=== PATIENT | male | born 1960 | race Caucasian/White ===

== ENCOUNTER 2018-09-20 14:44 | Emergency (ER) | payer BC, MEDICAID ==
[2018-09-20 15:25] VITALS: BP 154/89
[2018-09-20] MEDS ORDERED: Tetan/Diph/Pertus SYR(Tdap)* 0.5 ML SYR(BOOSTRIX) use SYR IM ONE (16:28)
--- NOTE | 2018-09-20 16:35 | ED ---
Throat Pain/Nasal Congestion - HPI Summary HPI Summary: 58 yr old male with complaint of redness and honey colored crusty drainage from skin right side of face. Patient sustained a brush burn from carpet that he fell on over this past weekend. He landed on right side of his face on floor, and sustained abrasion. Denies LOC. No pain in the bones or in eye. No fever or chills. He noted increasing redness around the abrasion and some honey colored drainage that has gotten crusty from the area. 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 Alcohol Use: Daily Alcohol Amount: 6 pack/day Substance Use Type: Reports: None Smoking Status (MU): Never Smoked Tobacco Review of Systems Constitutional: Negative Skin: Other - abrasion skin face with redness and drainage All Other Systems Reviewed And Are Negative: Yes Physical Exam Triage Information Reviewed: Yes Vital Signs On Initial Exam: Initial Vitals Temp Pulse Resp BP Pulse Ox 98.2 F 84 16 154/89 100 09/20/18 15:20 09/20/18 15:20 09/20/18 15:20 09/20/18 15:20 09/20/18 15:20 Vital Signs Reviewed: Yes Appearance: Positive: Well-Appearing, No Pain Distress Skin: Positive: Other - right side of face over lateral forehead, zygomatic and lateral maxilla area with abrasion and cellulitis with some honey colored oozing. No significant STS. Head/Face: Positive: Normal Head/Face Inspection Eyes: Positive: EOMI, MARYLOU ENT: Positive: Pharynx normal, TMs normal, Other - No tenderness over the orbital bones or zygoma, or maxillary sinus area bones. Neck: Positive: Supple, Nontender Respiratory/Lung Sounds: Positive: Clear to Auscultation, Breath Sounds Present Cardiovascular: Positive: RRR. Negative: Murmur Abdomen Description: Negative: Distended Musculoskeletal: Positive: Strength/ROM Intact Neurological: Positive: Sensory/Motor Intact, Alert, Oriented to Person Place, Time, CN Intact II-III Psychiatric: Positive: Normal Diagnostics - Vital Signs Vital Signs Temp Pulse Resp BP Pulse Ox 09/20/18 15:20 98.2 F 84 16 154/89 100 - Laboratory Lab Statement: Any lab studies that have been ordered have been reviewed, and results considered in the medical decision making process. EENT Course/Dx - Course Course Of Treatment: 58 yr old with cellulitis/impegitgo after abrasion to face. DC home on keflex 10 day course. - Diagnoses Provider Diagnoses: Abrasion, face with infection, Hypertension Discharge - Sign-Out/Discharge Documenting (check all that apply): Patient Departure All imaging exams completed and their final reports reviewed: No Studies - Discharge Plan Condition: Good Disposition: HOME Prescriptions: Cephalexin CAP* [Keflex CAP*] 500 mg PO QID #40 cap Patient Education Materials: Cellulitis (ED), Hypertension (ED) Referrals: No Primary Care Phys,NOPCP [Primary Care Provider] - [facility] [place]] - 2 Days - Billing Disposition and Condition Condition: GOOD Disposition: Home
== END 2018-09-20 16:43 | disposition home or self-care (01) ==
LOC: UCCORT 14:44
DX: S00.81XA Abrasion of other part of head, initial encounter (principal); L08.9 Local infection of the skin and subcutaneous tissue, unspecified; I10 Essential (primary) hypertension; Z23 Encounter for immunization; W18.39XA Other fall on same level, initial encounter; Y92.9 Unspecified place or not applicable
CPT/HCPCS: 90471; 90715; 99202; G0463

== ENCOUNTER 2019-07-11 09:44 | Emergency (ER) | payer BC, MEDICAID, OTHER ==
[2019-07-11 10:05] VITALS: BP 141/85
--- NOTE | 2019-07-11 10:36 | UC ---
Eye Complaint HPI - HPI Summary HPI Summary: Pt presents with c/o left eye redness, clear discharge, and swelling around eye or upper and lower lid taht began on 07/06/19 while hunting and had a branch "scrape across his eye". Pt states that he had the same thing happen last year and is requesting keflex and refusing eye drops. - History of Current Complaint Chief Complaint: UCEye Stated Complaint: LEFT EYE IRRITATION Time Seen by Provider: 07/11/19 10:26 Hx Obtained From: Patient Onset/Duration: Gradual Onset, Lasting Days, Still Present, Worse Since - onset Timing: Constant Severity Initially: Mild Severity Currently: Moderate Pain Intensity: 4 Character: Sharp Alleviating Factor(s): Darkness - is photophobic Associated Signs And Symptoms: Positive: Drainage (Clear), Swelling Related History: Diagnosed As: - periorbital cellulitis - Risk Factors Penetrating Injury Risk Factor: Negative Globe Rupture Risk Factors: Negative Acute Glaucoma Risk Factors: Negative Optic Artery Occlusion Risk Factors: Negative - Allergies/Home Medications Allergies/Adverse Reactions: Allergies Allergy/AdvReac Type Severity Reaction Status Date / Time No Known Allergies Allergy Verified 07/11/19 10:02 Home Medications: Home Medications Cephalexin CAP* [Keflex 500 CAP*] 500 mg PO ONCE 07/11/19 [History Confirmed ] PMH/Surg Hx/FS Hx/Imm Hx Previously Healthy: Yes - Surgical History Surgical History: Yes Surgery Procedure, Year, and Place: C5-C6 NECK SX - Family History Known Family History: Positive: Cardiac Disease - Social History Occupation: Employed Full-time Lives: With Family Alcohol Use: Daily Alcohol Amount: 6 pack/day Substance Use Type: None Smoking Status (MU): Never Smoked Tobacco Have You Smoked in the Last Year: No Review of Systems All Other Systems Reviewed And Are Negative: Yes Constitutional: Positive: Negative Skin: Positive: Other - swelling and erythema left eyelids and surrounding skin Eyes: Positive: Negative ENT: Positive: Negative Respiratory: Positive: Negative Cardiovascular: Positive: Negative Gastrointestinal: Positive: Negative Genitourinary: Positive: Negative Motor: Positive: Negative Neurovascular: Positive: Negative Musculoskeletal: Positive: Negative Neurological: Positive: Negative Psychological: Positive: Negative Is Patient Immunocompromised?: No Physical Exam Triage Information Reviewed: Yes Appearance: Pain Distress Vital Signs: Initial Vital Signs Temp 99.0 F 07/11/19 10:00 Pulse 72 07/11/19 10:00 Resp 14 07/11/19 10:00 BP 141/85 07/11/19 10:00 Pulse Ox 99 07/11/19 10:00 Vital Signs Reviewed: Yes Eyes: Positive: Conjunctiva Clear, Discharge - clear, pt requeste dthat room remain darkened so PE was limited due to darkened room. ENT Exam: Normal Dental Exam: Normal Neck exam: Normal Respiratory: Positive: No respiratory distress Musculoskeletal Exam: Normal Neurological Exam: Normal Psychological Exam: Normal Skin Exam: Other - mild erythema d swelling of left upper and lower eye lid and sourrounding skin Eye Complaint Course/Dx - Course Course Of Treatment: Pt refused antibiotic eye drops and requested keflex RX. - Differential Dx/Diagnosis Differential Diagnosis/HQI/PQRI: Conjunctivitis, Periorbital Cellulitis Provider Diagnosis: Periorbital cellulitis of left eye Discharge ED - Sign-Out/Discharge Documenting (check all that apply): Patient Departure All imaging exams completed and their final reports reviewed: No Studies - Discharge Plan Condition: Stable Disposition: HOME Prescriptions: Cephalexin CAP* [Keflex 500 CAP*] 500 mg PO Q6H #40 cap Patient Education Materials: Periorbital Cellulitis in Adults (ED), Conjunctivitis (ED) Referrals: [facility] [place] [facility] [Outside] - If Needed No Primary Care Phys,NOPCP [Primary Care Provider] - Additional Instructions: Please follow up with your PCP as needed. You have refused the treatment offered to you and if your symptoms worsen or do not improve please seek care at the closest healthcare facility as soon as possible. - Billing Disposition and Condition Condition: STABLE Disposition: Home
== END 2019-07-11 10:45 | disposition home or self-care (01) ==
LOC: UCCORT 09:44
DX: L03.213 Periorbital cellulitis (principal)
CPT/HCPCS: 99212; G0463